=== PATIENT | male | born 2000 | race Caucasian/White ===

== ENCOUNTER 2022-03-21 06:55 | Emergency (ER) | payer BC ==
[2022-03-21 07:07] VITALS: RESP 16
--- NOTE | 2022-03-21 07:41 | ED ---
General Adult HPI - General Chief complaint: GI Bleed Stated complaint: Blood in stool Time Seen by Provider: 03/21/22 07:10 Source: patient Mode of arrival: ambulatory Limitations: no limitations - History of Present Illness Initial comments: Dictation was produced using [employer] dictation software. please excuse any grammatical, word or spelling errors. Chief Complaint: 22-year-old male presents to the emergency department for painl ess bright red blood per rectum History of Present Illness: 22-year-old male he has no significant past medical history. He said his alarm this morning to get ready for a card game tournament. He woke up to his alarm set on the toilet. He had a bowel movement. He noticed a couple drops of blood in the toilet and went to wipe and celebrated blood per rectum. Patient denies any pain. Patient does not take any anticoagulation medications. Patient has not had bleeding from his rectum in the past. States that he thinks that his family has history of GI polyps. Patient has any abdominal pain. The ROS documented in this emergency department record has been reviewed and confirmed by me. Those systems with pertinent positive or negative responses have been documented in the HPI. All other systems are other negative and/or noncontributory. PHYSICAL EXAM: General Impression: Alert and oriented x3, not in acute distress HEENT: Normocephalic atraumatic, extra-ocular movements intact, pupils equal and reactive to light bilaterally, mucous membranes moist. Cardiovascular: Heart regular rate and rhythm Chest: Able to complete full sentences, no retractions, no tachypnea Abdomen: abdomen soft, non-tender, non-distended, no organomegaly Musculoskeletal: Pulses present and equal in all extremities, no peripheral edema Motor: no focal deficits noted Neurological: CN II-XII grossly intact, no focal motor or sensory deficits noted Skin: Intact with no visualized rashes Psych: Normal affect and mood Rectal exam: No gross blood, no evidence of hemorrhoid or anal fissure ED course: 22-year-old male presents emergency department for painless rectal bleeding. Vital Signs upon arrival are within acceptable limits. Patient is well-appearing at the bedside. He has no high-risk features. Laboratory evaluation obtained. CBC, coag panel metabolic panel is unremarkabl e. Patient observed in emergency department for approximately 1 hour 30 minutes. Been stable medical condition. Patient be discharged. Advised to follow-up with primary care doctor. He is given the contact information for GI specialist. - Related Data Home Medications Medication Instructions Recorded Confirmed EPINEPHrine [Epipen 2-Ramu] 0.3 mg IM ONCE PRN 02/03/16 02/03/16 Sulfamethox-Tmp 800-160Mg [Bactrim 1 tab PO Q12HR 02/03/16 02/03/16 DS 800-160 mg] Allergies Allergy/AdvReac Type Severity Reaction Status Date / Time venom-honey bee Allergy Anaphylaxis Verified 03/21/22 07:07 [bee venom (honey bee)] Review of Systems ROS Statement: Those systems with pertinent positive or pertinent negative responses have been documented in the HPI. ROS Other: All systems not noted in ROS Statement are negative. Past Medical History Past Medical History: No Reported History History of Any Multi-Drug Resistant Organisms: None Reported Past Surgical History: Adenoidectomy, Tonsillectomy Additional Past Surgical History / Comment(s): cyst removal Past Psychological History: No Psychological Hx Reported Smoking Status: Never smoker Past Alcohol Use History: None Reported Past Drug Use History: None Reported General Exam Limitations: no limitations Course Vital Signs 03/21/22 07:04 Temperature 98.1 F Pulse Rate 77 Respiratory 16 Rate Blood Pressure 130/80 O2 Sat by Pulse 98 Oximetry Medical Decision Making - Lab Data Result diagrams: 03/21/22 07:40 03/21/22 07:40 Lab Results 03/21/22 03/21/22 03/21/22 Range/Units 07:40 07:40 07:40 WBC 7.6 (3.8-10.6) k/uL RBC 4.84 (4.30-5.90) m/uL Hgb 13.7 (13.0-17.5) gm/dL Hct 42.7 (39.0-53.0) % MCV 88.2 (80.0-100.0) fL MCH 28.4 (25.0-35.0) pg MCHC 32.2 (31.0-37.0) g/dL RDW 11.8 (11.5-15.5) % Plt Count 393 (150-450) k/uL MPV 6.6 Neutrophils % 52 % Lymphocytes % 33 % Monocytes % 5 % Eosinophils % 7 % Basophils % 1 % Neutrophils # 3.9 (1.3-7.7) k/uL Lymphocytes # 2.5 (1.0-4.8) k/uL Monocytes # 0.4 (0-1.0) k/uL Eosinophils # 0.6 (0-0.7) k/uL Basophils # 0.1 (0-0.2) k/uL PT 10.6 (9.0-12.0) sec INR 1.0 (<1.2) APTT 25.2 (22.0-30.0) sec Sodium 140 (137-145) mmol/L Potassium 4.5 (3.5-5.1) mmol/L Chloride 106 (98-107) mmol/L Carbon Dioxide 24 (22-30) mmol/L Anion Gap 10 mmol/L BUN 13 (9-20) mg/dL Creatinine 0.89 (0.66-1.25) mg/dL Est GFR (CKD-EPI)AfAm >90 (>60 ml/min/1.73 sqM) Est GFR (CKD-EPI)NonAf >90 (>60 ml/min/1.73 sqM) Glucose 104 H (74-99) mg/dL Calcium 8.8 (8.4-10.2) mg/dL Disposition Clinical Impression: BRBPR (bright red blood per rectum) Disposition: HOME SELF-CARE Condition: Good Instructions (If sedation given, give patient instructions): Gastrointestinal Bleeding (ED) Is patient prescribed a controlled substance at d/c from ED?: No Referrals: Elvin Mcpherson MD [Primary Care Provider] - 1-2 days Maggie Tinajero MD [STAFF PHYSICIAN] - 1-2 days Time of Disposition: 08:18
[2022-03-21 07:59] LABS: Basophils # (A) 0.1 k/uL (0-0.2); Basophils % (A) 1 %; Eosinophils # (A) 0.6 k/uL (0-0.7); Eosinophils % (A) 7 %; HCT 42.7 % (39.0-53.0); HGB 13.7 gm/dL (13.0-17.5); Lymphocytes # (A) 2.5 k/uL (1.0-4.8); Lymphocytes % (A) 33 %; MCH 28.4 pg (25.0-35.0); MCHC 32.2 g/dL (31.0-37.0); MCV 88.2 fL (80.0-100.0); Mean Platelet Volume 6.6; Monocytes # (A) 0.4 k/uL (0-1.0); Monocytes % (A) 5 %; Neutrophils # (A) 3.9 k/uL (1.3-7.7); Neutrophils % (A) 52 %; Partial Thromboplastin Time 25.2 sec (22.0-30.0); Platelet Count 393 k/uL (150-450); Prothrombin Time 10.6 sec (9.0-12.0); RBC 4.84 m/uL (4.30-5.90); RDW 11.8 % (11.5-15.5); WBC 7.6 k/uL (3.8-10.6)
[2022-03-21 08:02] LABS: African American GFR (CKD) >90 (>60 ml/min/1.73 sqM); Anion Gap 10 mmol/L; Blood Urea Nitrogen 13 mg/dL (9-20); Calcium 8.8 mg/dL (8.4-10.2); Carbon Dioxide 24 mmol/L (22-30); Chloride 106 mmol/L (98-107); Glucose 104 mg/dL (74-99); Non-African American GFR(CKD) >90 (>60 ml/min/1.73 sqM); Potassium 4.5 mmol/L (3.5-5.1); Sodium 140 mmol/L (137-145)
[2022-03-21 08:48] VITALS: BP 122/74; PULSE 71; TEMP 98
== END 2022-03-21 08:47 | disposition home or self-care (01) ==
LOC: EC 06:55
DX: K62.5 Hemorrhage of anus and rectum (principal); Z91.030 Bee allergy status
CPT/HCPCS: 36415; 80048; 85025; 85610; 85730; 99284